=== PATIENT | female | born 1995 | race Caucasian/White ===

== ENCOUNTER 2018-10-10 14:02 | Emergency (ER) | payer OTHER, SELFPAY ==
[2018-10-10 14:07] VITALS: BP 150/94; PULSE 84; RESP 15; TEMP 36.8; O2SAT 97; BMI 40.7
--- NOTE | 2018-10-10 14:10 | ED.WOUNDLAC ---
HPI - Wound/Laceration General Chief Complaint: Wound/Laceration Stated Complaint: Cut index finger Lt hand Time Seen by Provider: 10/10/18 14:07 Source: patient Mode of arrival: ambulatory Limitations: no limitations History of Present Illness HPI narrative: 23-year-old female here for evaluation of cut to her left index finger. Patient states she cut her hand while trying to take a pit out of an avocado. Occurred just prior to arrival. Has had a tetanus shot within the past 2 years. She did wash it out prior to arrival. Related Data Allergies Allergy/AdvReac Type Severity Reaction Status Date / Time No Known Drug Allergies Allergy Verified 10/10/18 14:07 Review of Systems Constitutional Denies fever(s) Musculoskeletal Denies myalgias and Denies arthralgias Integumentary/Breasts Comments: Cut to left index finger Neurologic Comments: No tingling left index finger Hematologic/Lymphatic Denies easy bleeding and Denies easy bruising [facility] Medical History Healthy adult (Acute) Social History Smoking Status: Never smoker Social History Smoking Status: Never smoker Exam Initial Vital Signs Initial Vital Signs: Vital Signs Temperature 98.3 F 10/10/18 14:07 Pulse Rate 84 10/10/18 14:07 Respiratory Rate 15 10/10/18 14:07 Blood Pressure 150/94 H 10/10/18 14:07 Pulse Oximetry 97 10/10/18 14:07 Const General: cooperative, comfortable, well developed and well groomed Orientation: alert and awake Cardio Pulses: radial pulses present on the left Skin Other: Patient with a 2 cm ?U? cut to the proximal portion of the left index finger. On the ulnar aspect of the index finger in between the index and ring fingers. No active bleeding. Neuro Other: Sensation intact to light touch left index finger Extrem Other: Full range of motion of MCP, PIP and PIP joint of the left index finger Psych Appearance: grossly normal and well kempt Procedures Laceration Repair Laceration 1: Site: hand Side (If applicable): left Size (cm): 2 Description: other (?U? shaped) Depth: simple, single layer Local Anesthetic: lidocaine 1% Amount of anesthesia used (mL): 3 Pre-repair: wound explored, irrigated extensively and deep structures intact Skin layer closed with: nylon Size (cm): 4-0 Number of sutures: 3 Technique: simple, interrupted Course Orders Ordered: Discontinued Medications Lidocaine/Sodium Bicarbonate (Buffered Lidocaine 10 Ml Syr) 10 ml INJ NOW ONE Stop: 10/10/18 14:11 Last Admin: 10/10/18 14:14 Dose: 10 ml Vital Signs - 8 hr 10/10/18 14:07 Temperature 98.3 F Pulse Rate 84 Respiratory Rate 15 Blood Pressure 150/94 H Pulse Oximetry 97 MDM - Wound/Laceration MDM Narrative Medical decision making narrative: No foreign body, patient is up-to-date on tetanus, this was not a linear cut the more even undermining of the skin. Informed the patient that the skin may not survive this due to the nature of the cut. We did discuss that there would be a scar. There is no signs of infection. Was closed as described above. Patient was given care instructions and return precautions. She expressed understanding and agreement with plan. Discharge Plan Departure Patient Disposition: Home Clinical Impression: Laceration Discharge Date/Time: 10/10/18 14:52 Interventions: ED Discharge Assessment Last Done: 10/10/18 14:36 Instructions: DI for Minor Laceration Activity Restrictions/Additional Instructions: The stitches do need to come out in 7-10 days. You can contact your primary provider or go to the walk-in clinic here in the hospital for this. After 24 hours you can remove the bandage that was placed here in the emergency department and wash your hands like normal. You can use soap and water. Do not soak your hands and anything. Return to the emergency department for any new or worsening symptoms
[2018-10-10] MEDS: LIDO 1%/SOD BICARB 8.4% (10ML) 10 ML SYRINGE INJ (14:14)
== END 2018-10-10 14:52 | disposition home or self-care (01) ==
LOC: ED 14:43
PROVIDERS: Emergency Provider Emergency Medicine
DX: S61.211A Laceration without foreign body of left index finger without damage to nail, initial encounter (principal); W26.0XXA Contact with knife, initial encounter
CPT/HCPCS: 12001; 96372; 99283